=== PATIENT | female | born 1975 | race Asian ===

== ENCOUNTER 2017-05-21 15:54 | Emergency (ER) | payer BC ==
[~2017-05-21] VITALS: Ht 162.6 cm; Wt 51.3 kg
[~2017-05-21 15:54] MED LIST: PRENTAB26 PO
[2017-05-21 15:58] VITALS: TEMP 37.1; Ht 162.6 cm; Wt 51.3 kg
[2017-05-21] MEDS ORDERED: METHYLPREDNISOLONE 125 MG VIAL IV STA (16:19)
[2017-05-21] MEDS ORDERED: LORAZEPAM 2 MG/ML 1 ML VIAL IV STA (16:19)
[2017-05-21] MEDS ORDERED: MoRPHine SULFATE 4 MG/ML 1 ML CARP\\VIAL IV STA (16:19)
[2017-05-21] MEDS ORDERED: TRMO115 PO (16:59)
[2017-05-21 17:02] LABS: BASO % 0.2 %; BASO ABS # 0.02 K/uL (0-0.2); COMPLETE YES; EOS % 2.3 %; HEMATOCRIT 36.8 % (37-47); IG% 0.2 %; LYMPH % 12.2 %; LYMPH ABS # 1.01 K/uL (1.2-3.4); MEAN CELL VOLUME 96.8 fL (80-100); MEAN CORPUSCULAR HEMOGLOBIN 32.6 pg (25-34); MEAN CORPUSCULAR HGB CONC 33.7 g/dl (32-36); MEAN PLATELET VOLUME 9.9 fL (7.4-10.4); MONO % 4.1 %; PLATELET COUNT 211 K/uL (130-400)
[2017-05-21 17:22] LABS: BUN/CREATININE RATIO 18.6 (10-20); C-REACTIVE PROTEIN 1.32 mg/dl (0-0.29); CALCIUM 9.1 mg/dl (8.5-10.1); CREATININE 0.63 mg/dl (0.60-1.20); POTASSIUM 3.3 mmol/L (3.5-5.1)
[2017-05-21] MEDS ORDERED: MoRPHine SULFATE 10 MG/ML CARP/VIAL IV STA (17:26)
[2017-05-21] MEDS ORDERED: MoRPHine SULFATE 2 MG/ML CARP ONE (17:29)
--- NOTE | 2017-05-21 17:42 | DIAGNOSTIC IMAGING REPORT ---
CERVICAL SPINE 5 VIEWS HISTORY: severe neck pain COMPARISON: None. FINDINGS: The cervical spine is visualized from C1 through the superior endplate of T1. There is no fracture. No subluxation. Disc spaces are preserved. Prevertebral soft tissues and the atlantodens interval are intact. Straightening of the cervical spine. IMPRESSION: No fracture or subluxation within the cervical spine. Straightening of the cervical spine which could be due to muscular spasm. Electronically signed by: Shree Nice M.D. 05/21/2017 5:40 PM Dictated Date/Time: 05/21/2017 5:39 PM
--- NOTE | 2017-05-21 17:59 | EMERGENCY ROOM VISIT NOTE ---
ED Visit Note First contact with patient: 16:02 The patient was seen and examined with Fercho Hoffman PA-C. I agree with the history, physical and findings. Please see the note for disposition and details. I did examine the patient on with Fercho. The patient has significant neck discomfort with lateral motion. She did feel somewhat better with a distraction test. Unable to perform a Spurling maneuver as she had too much discomfort with that type of movement. She was neurologically intact in the upper extremities. She did have a slight elevation of her inflammatory markers but denies any recent fevers or infections. Her x-ray imaging was rather unremarkable. Despite the treatment given in the emergency department she was still uncomfortable. I discussed advanced imaging with her as she has this unusual presentation. Fercho was planning to set up an MRI/MRA. The patient declined and wanted to follow-up as an outpatient. Patient's family were aware of the issues by limiting the workup.
[2017-05-21] MEDS ORDERED: HYDR-5688 PO (18:37)
[2017-05-21 18:48] VITALS: BP 102/62; PULSE 62; O2SAT 96
--- NOTE | 2017-05-21 20:09 | EMERGENCY ROOM VISIT NOTE ---
ED Visit Note First contact with patient: 16:02 Chief Complaint: Neck pain. History of Present Illness: Ms. Dukes is a 41-year-old [place] female who ambulates into the ED accompanied by male friend complaining of neck pain. Historically patient denies any previous significant neck injuries or surgeries. She has been feeling well. Patient reports yesterday morning, approximately 32 hours ago, she awoke from sleep and was experiencing neck pain. Her reports she fell asleep nursing their child and appeared an awkward position. She reports at the time she woke up her pain was located over the bilateral trapezius muscles just lateral to the spine. The pain starts at the C6-C7 intervertebral and extends up to her ears. Her pain was initially mild and has gradually increased in intensity. She has not taken any medication for pain. Currently she was pouring that the pain over the left side of the neck is more severe. She describes it as a constant cramping sensation with occasional burning sensation. She rates her discomfort 9/10. Her pain is nonradiating. Her pain worsens with all movement of her cervical spine. She has not identified any alleviating factors related to the pain. She denies fevers, chills, sweats, skin eruptions, skin color changes, headache , dizziness, lightheadedness, visual changes, hearing changes, difficulty speaking, difficulty swallowing, difficulty ambulating/coordinating body movements, upper respiratory tract symptoms, sinus congestion/drainage,, ear drainage, sore throat, voice changes, cough, chest pain, shortness of breath, abdominal pain, nausea, vomiting, upper extremity weakness/numbness/tingling. Review of Systems: As noted above in history of present illness. 8 body systems were reviewed and found to be negative as noted above. Past Medical History: Eczema, heartburn, kidney infection area Current Medications: Multivitamins, triamcinolone acetonide. Allergies to Medications: Patient denies. Social History: Patient is currently employed; she feels safe in her home environment; she denies tobacco use and admits to social alcohol use. Physical Examination: Vital Signs: Date Time Temp Pulse Resp B/P (MAP) Pulse Ox O2 Delivery O2 Flow Rate FiO2 05/21/17 18:48 62 16 102/62 96 05/21/17 17:34 68 16 93/51 96 Room Air 05/21/17 16:48 66 05/21/17 15:58 37.1 72 16 109/70 97 Room Air GENERAL: 41-year-old female in moderate distress due to pain, nontoxic-appearing , afebrile and hemodynamically stable. NEUROLOGICAL: Awake, alert and oriented to person, place and time. Answering questions appropriately and following commands. Normal gait. Good hand eye coordination. No focal motor or sensory deficits. SKIN: Warm, dry and pink. No soft tissue eruptions or trauma noted. HEENT: Atraumatic and normocephalic. No tenderness or erythema over the frontal or maxillary sinuses. External ears are nontender. Auditory canals are pink in pain. Tympanic membrane are not erythematous or edematous. PERRLA. EOMI without nystagmus. Sclera white and conjunctiva pink. No drainage from naris. Airway is patent. Oral cavity moist and pink. Pharynx is nonerythematous or edematous. Speech normal. No lymphadenopathy. Trachea midline. No jugular venous distention. BACK: No tenderness over the bony cervical and thoracic spine. Moderate tenderness over the trapezius muscle bilaterally with prominence on the left. Palpable muscle spasm on the left. Patient had minimal movements in flexion and extension of the neck but no lateral bending or twisting. No CVA tenderness. THORAX: Lungs sounds are clear to auscultation and equal bilaterally with symmetrical chest wall. ABDOMEN: Flat, soft and nontender. Positive bowel sounds in all quadrants. No guarding, rigidity or organomegaly. EXTREMITIES: Moves all extremities well on command and with purpose. All distal neurovascular statuses are intact and equal bilaterally. Upper Extremities: 4/5 muscle strength in all movements of the shoulders, elbows, forearms, wrists and hands. ED Course: Patient is assessed as noted above. Patient's medication list was reviewed. Laboratory Testing: Test 05/21/17 16:49 Range/Units White Blood Count 8.30 4.8-10.8 K/uL Red Blood Count 3.80 4.2-5.4 M/uL Hemoglobin 12.4 12.0-16.0 g/dL Hematocrit 36.8 37-47 % Mean Corpuscular Volume 96.8 80-100 fL Mean Corpuscular Hemoglobin 32.6 25-34 pg Mean Corpuscular Hemoglobin Concent 33.7 32-36 g/dl Platelet Count 211 130-400 K/uL Mean Platelet Volume 9.9 7.4-10.4 fL Neutrophils (%) (Auto) 81.0 % Lymphocytes (%) (Auto) 12.2 % Monocytes (%) (Auto) 4.1 % Eosinophils (%) (Auto) 2.3 % Basophils (%) (Auto) 0.2 % Neutrophils # (Auto) 6.72 1.4-6.5 K/uL Lymphocytes # (Auto) 1.01 1.2-3.4 K/uL Monocytes # (Auto) 0.34 0.11-0.59 K/uL Eosinophils # (Auto) 0.19 0-0.5 K/uL Basophils # (Auto) 0.02 0-0.2 K/uL RDW Standard Deviation 42.7 36.4-46.3 fL RDW Coefficient of Variation 12.2 11.5-14.5 % Immature Granulocyte % (Auto) 0.2 % Immature Granulocyte # (Auto) 0.02 0.00-0.02 K/uL Erythrocyte Sedimentation Rate 26 0-21 mm/hr Sodium Level 136 136-145 mmol/L Potassium Level 3.3 3.5-5.1 mmol/L Chloride Level 104 98-107 mmol/L Carbon Dioxide Level 27 21-32 mmol/L Anion Gap 5.0 3-11 mmol/L Blood Urea Nitrogen 12 7-18 mg/dl Creatinine 0.63 0.60-1.20 mg/dl Est Creatinine Clear Calc Drug Dose 97.1 ml/min Estimated GFR () 131.0 Estimated GFR (Non- 113.0 BUN/Creatinine Ratio 18.6 10-20 Random Glucose 186 70-99 mg/dl Calcium Level 9.1 8.5-10.1 mg/dl C-Reactive Protein 1.32 0-0.29 mg/dl Patient was offered a cervical spine CT and refused. Cervical Spine X-Rays: Were read by myself and the radiologist showing no fractures or subluxations. Straining of the cervical spine was noted. Patient was given 4 mg of morphine IV, 0.5 mg of Ativan IV and 125 mg of Solu- Medrol IV for her initial treatment. Patient was reassessed multiple times during her stay in the emergency department. After patient returned from x-ray she reported increase in pain and she was given 6 mg of morphine IV. Patient's case was reviewed with ; he independently assessed the patient and we agreed on diagnostic approach, treatment, disposition and plan. 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 She also expressed concerns that she has a VALERIA Rodrigues her insurance. Patient was educated about today's findings and instructed on her treatment plan ; she verbalized understanding and agreement with this plan. Clinical Impression: Torticollis. Hyperglycemia. Elevated inflammatory factors. Decision-Making: Initially my differential diagnosis I considered torticollis, meningitis, cervical disc disease, lumbar disc disease and other causes. Patient's blood pressure: Normal to hypotensive. Blood pressure disposition: None required. Disposition: Patient discharged home in stable condition accompanied by her ; prior to departure she was reassessed and subjectively reported she was feeling better and rated her discomfort 4/10. Plan: Comfort measures were discussed with the patient including rest, heat/cold therapies and a sliding pain medication scale of ibuprofen, acetaminophen and [place]. Patient was encouraged to call her PCP in the morning and inform them of today' s ED visit and request follow-up care and treatment for her neck pain but also her hyperglycemia. Patient was encouraged return ED for worsening pain, fevers, upper extremity weakness/numbness/tingling, vomiting or any new/concerning symptoms.
== END 2017-05-21 18:49 | disposition home or self-care (01) ==
LOC: C.EDB 15:56
DX: M43.6 Torticollis (principal); R73.9 Hyperglycemia, unspecified

== ENCOUNTER 2017-05-23 11:13 | Emergency (ER) | payer BC ==
[~2017-05-23] VITALS: Ht 162.6 cm; Wt 51.8 kg
[~2017-05-23 11:13] MED LIST changes: +HYDR-5688 PO; +TRMO115 PO
[2017-05-23 11:22] VITALS: TEMP 37; Ht 162.6 cm; Wt 51.8 kg
[2017-05-23] MEDS ORDERED: KETOROLAC TROMETHAMINE 30 MG/ML VIAL IV STA (12:21)
[2017-05-23] MEDS ORDERED: DIAZEPAM INJ 5 MG/ML 2 ML CARP IV STA (12:21)
[2017-05-23] MEDS ORDERED: ONDANSETRON INJ 2 MG/ML 2 ML VIAL IV STA (12:21)
[2017-05-23] MEDS ORDERED: MoRPHine SULFATE 10 MG/ML CARP/VIAL IV STA (12:21)
[2017-05-23] MEDS ORDERED: HYDR-5688 PO (12:22)
[2017-05-23] MEDS ORDERED: CYCL10TA6 PO (12:54)
[2017-05-23] MEDS ORDERED: OXYC1TAB3 PO (12:54)
--- NOTE | 2017-05-23 12:55 | EMERGENCY ROOM VISIT NOTE ---
ED Visit Note First contact with patient: 11:47 CHIEF COMPLAINT: Left-sided neck pain 3 days HPI: Patient is a [id number] 41-year-old female who returns to the emergency department accompanied by her for ongoing left-sided neck pain. She's had symptoms for about 3 days. The pain was initially in her entire neck, but has localized more to the left hand side. She was seen and evaluated here on the , had unremarkable blood work and a negative x-ray. There was talk of an MRI at that time, but the patient declined. She was discharged home on [place] 5 mg tablets, she reports that she is taking 2 tablets every 6 hours which only takes the edge off of her pain. She reports that she has had a heating pad on "constantly." She states that the pain worsened overnight, she describes it as a sharp, throbbing pain in the left side of her neck that radiates toward the base of her skull and toward the top of her shoulder. At its worst she rated it a 10/10, presently she rates it an 8/10. It is worse with any attempts at movement of her neck, as well as her left shoulder. She denies any symptoms radiating into her mid back. She denies any radicular symptoms radiating down her left arm, no arm numbness or weakness. Her symptoms started about 3 days ago, after she fell asleep awkwardly while breast-feeding her child. She denies any fever or chills. There has been no direct trauma to the back. She denies any nausea or vomiting. REVIEW OF SYSTEMS: Review of systems as per HPI. All other systems reviewed were negative. 10 systems reviewed. PMH: Electronic medical records are reviewed and summarized as above/below. See Problem List. SOCIAL HISTORY: Patient lives at home with her family. PHYSICAL EXAM: Vital Signs: Reviewed Nurse's notes. MENTAL STATUS: Patient is an uncomfortable-appearing 41-year-old female who is awake and alert and sitting semiupright on the gurney in moderate distress due to her headache pain area she has significant discomfort with any movement of her neck, she holds her head flexed, rotated and leaning slightly to the right. HEENT: Normocephalic, atraumatic. Pupils equal, round, reactive to light and accommodation. EOMs intact without nystagmus. Sclera are anicteric. Tympanic membranes intact, with normal landmarks. External canals are clear. Oral and nasopharynx are clear. Mucous membranes are moist. NECK: The patient has visualized spasm in the left trapezius distribution, and is markedly tender in this region. She does not have any pain over the spinous processes of the cervical or upper thoracic spine. There is slight left paraspinous muscle tenderness in the upper cervical region, no pain extending into the rhomboid distribution. Cervical spine range of motion is limited due to her discomfort. HEART: Regular rate and rhythm. LUNGS: Clear to auscultation. NEUROLOGICAL: Alert, oriented, and cooperative. Cranial nerves, sensation and strength grossly intact. Upper extremity DTRs are equal and secondary symmetrical bilaterally. Radial and ulnar pulses are easily palpable. Sensation light touch is intact. Capillary refills less than 2 seconds. EMERGENCY DEPARTMENT COURSE: The patient was seen and examined as above. Her old records were reviewed, specifically her ED visit from just 2 days ago. She had benign radiographs at this time. Patient's pain appears to be muscular/ ligamentous injury to her. She does not have any radicular symptoms, no upper extremity weakness or diminished reflexes. She does not have any physical exam findings to suspect acute cord compression. I do not suspect infectious etiology, hematoma or abscess, CVA/TIA, or dissection. I discussed with them at this juncture that I do not feel that an MRI is indicated and they were in agreement. The patient has not been taking an NSAID. She also is concerned because she was not placed on a muscle relaxer, both of which I agree are reasonable. IV lock was initiated. She was medicated with Toradol 30 mg, morphine 6 mg, Zofran 4 mg and Valium 2.5 mg IV. She was observed in the emergency department and reassessed at which point she appeared much more comfortable. The patient rated her pain a 5/10 at discharge. As she reported little relief with the [place], she will be bumped up to OxyIR. She was encouraged to take an NSAID regularly, and was counseled that she can safely do this with the narcotic. She was also prescribed Flexeril. Heat and gentle stretching/range of motion exercises and massage were also encouraged. She was advised to follow-up with her primary care provider next week for further care and management if symptoms are not improving. The patient was discharged home with her driving in good condition. Medication reconciliation: I attest that I have personally reviewed the patient' s current medication list. Blood pressure screening : Patient was found to have normal blood pressure on screening and does not require follow-up. Problem List Medical Problems: (1) Elderly multigravida, currently in third trimester Status: Resolved (2) Neck pain Status: Resolved (3) Supervision of elderly multigravida in third trimester (>=35 years old at time of delivery) Status: Resolved (4) Vaginal delivery Status: Resolved Current/Historical Medications Scheduled Multivit/Min/Iron/Fol Ac/Pren ( Vitamin), 1 TAB PO DAILY Triamcinolone Acet (Triamcinolone Acetonide), 1 APPLN PO PRN UD Scheduled PRN Cyclobenzaprine Hcl (Flexeril), 10 MG PO TID PRN for Muscle Spasms Hydrocodone/Acetaminophen 5MG/325MG ([place] 5MG/325MG), 2 TABLETS PO Q6 PRN for Pain Oxycodone Immediate Rel Tab (Roxicodone Ir), 1-2 TAB PO Q4H PRN for Severe Pain Allergies Coded Allergies: Shrimp (Verified Allergy, Mild, HIVES, 05/23/17) Vital Signs Date Time Temp Pulse Resp B/P (MAP) Pulse Ox O2 Delivery O2 Flow Rate FiO2 05/23/17 13:38 66 18 101/64 96 05/23/17 13:10 82 18 106/60 98 Room Air 05/23/17 12:49 60 18 111/62 98 Room Air 05/23/17 12:49 Room Air 05/23/17 11:22 37.0 63 16 105/69 98 Room Air Medications Administered Medications (Trade) Dose Ordered Sig/Chinmay Route Start Time Stop Time Status Last Admin Dose Admin Ketorolac Tromethamine (Toradol Inj) 30 mg NOW STAT IV 05/23/17 12:21 05/23/17 12:24 DC 05/23/17 12:44 30 MG Morphine Sulfate (MoRPHine SULFATE INJ) 6 mg NOW STAT IV 05/23/17 12:21 05/23/17 12:24 DC 05/23/17 12:44 6 MG Ondansetron HCl (Zofran Inj) 4 mg NOW STAT IV 05/23/17 12:21 05/23/17 12:24 DC 05/23/17 12:45 4 MG Diazepam (Valium Inj) 2.5 mg NOW STAT IV 05/23/17 12:21 05/23/17 12:24 DC 05/23/17 12:45 2.5 MG Departure Information Impression Primary Impression: Torticollis Prescriptions Oxycodone Immediate Rel Tab (ROXICODONE IR) 5 Mg Tab 1-2 TAB PO Q4H Y for Severe Pain, #30 TAB For Initial Treatment Prov: Malu Scott PA 05/23/17 Cyclobenzaprine Hcl (FLEXERIL) 10 Mg Tab 10 MG PO TID Y for Muscle Spasms, #30 TAB Prov: Malu Scott PA 05/23/17 Referrals No Doctor, Assigned (PCP) Patient Instructions [facility] Additional Instructions DO NOT drive, drink alcohol, operate machinery, or perform dangerous activities today. You were given medications in the ER that can affect your ability to safely function or operate a vehicle. Oxycodone (OxyIR) 5mg: Take 1-2 pills every four hours for breakthrough pain. Avoid alcohol, operating machinery or dangerous equipment, working on ladders or roofs, DRIVING, or situations where being under the influence may be dangerous. It is recommended to use an pcod-cgw-fftenyc stool softener such as Colace, 100mg twice daily while taking this medication to avoid constipation. Cyclobenzaprine (Flexeril) 10 mg: Take 1 pills 3 times daily as needed for muscle spasms.. Avoid alcohol, operating machinery or dangerous equipment, working on ladders or roofs, DRIVING, or situations where being under the influence may be dangerous. Ibuprofen(Motrin, Advil) may be used for fever or pain. Use 600mg every six hours with food. Avoid using more than 2400mg in a 24 hour period. Do not use 2400mg per day for more than three consecutive days without physician direction. Prolonged inappropriate use can lead to stomach upset or ulcers. This medication can be taken if you need to drive, work, or perform activities which may be dangerous when taking narcotic pain medication. (AND/OR) Acetaminophen(Tylenol) may be used for fever or pain. Use 1000mg every six hours as needed. Avoid using more than 3000mg in a 24 hour period. This medication can be taken if you need to drive, work, or perform activities which may be dangerous when taking narcotic pain medication. Rest and avoid heavy lifting until your symptoms resolve and then gradually return to full activity. A good rule of thumb is if it hurts your back to perform a certain activity, then it should be avoided until you are healthy again. A heating pad, warm compresses, or a hot shower may help with tight muscles and can be done several times a day as needed. Gentle stretching exercises/range of motion exercises to help reduce stiffness and spasm. Continue current medications. Return to the ER immediately for any numbness, tingling, severe pain, loss of control of your bowels or bladder, inability to walk, or as needed. Follow up with your primary care physician within 3-5 days for a recheck of your current condition.
[2017-05-23 13:38] VITALS: BP 101/64; PULSE 66; O2SAT 96
== END 2017-05-23 13:39 | disposition home or self-care (01) ==
LOC: C.EDB 11:15 → C.EDD 13:39
DX: M43.6 Torticollis (principal); Z98.890 Other specified postprocedural states

== ENCOUNTER → 2017-09-11 | Outpatient (CLI) | payer OTHER ==
[~2017-09-11] MED LIST changes: +OXYC1TAB3 PO
== END | disposition home or self-care (01) ==
LOC: C.LAB1850 08-20 14:23
PROVIDERS: ATTEND Obstetrics & Gynecology Reproductive Endocrinology
DX: N97.9 Female infertility, unspecified (principal); Z31.41 Encounter for fertility testing; Z11.3 Encounter for screening for infections with a predominantly sexual mode of transmission; Z11.4 Encounter for screening for human immunodeficiency virus [HIV]; Z11.59 Encounter for screening for other viral diseases; Z13.0 Encounter for screening for diseases of the blood and blood-forming organs and certain disorders involving the immune mechanism; Z13.21 Encounter for screening for nutritional disorder

== ENCOUNTER → 2017-09-23 | Outpatient (CLI) | payer OTHER | END | disposition home or self-care (01) | LOC: C.LAB1850 09:33 | PROVIDERS: ATTEND Obstetrics & Gynecology Reproductive Endocrinology | DX: N97.9 Female infertility, unspecified (principal) ==

== ENCOUNTER → 2017-10-12 | Outpatient (CLI) | payer OTHER | END | disposition home or self-care (01) | LOC: C.LAB1850 11:50 | PROVIDERS: ATTEND Obstetrics & Gynecology Reproductive Endocrinology | DX: O09.00 Supervision of pregnancy with history of infertility, unspecified trimester (principal); Z3A.00 Weeks of gestation of pregnancy not specified ==

== ENCOUNTER → 2017-10-28 | Outpatient (CLI) | payer OTHER | END | disposition home or self-care (01) | LOC: C.LABSPEC 17:13 | PROVIDERS: ATTEND Obstetrics & Gynecology | DX: O09.811 Supervision of pregnancy resulting from assisted reproductive technology, first trimester (principal) ==

== ENCOUNTER → 2018-01-05 | Outpatient (CLI) | payer OTHER ==
[~2018-01-05] MED LIST changes: -OXYC1TAB3 PO
== END | disposition home or self-care (01) ==
LOC: C.LAB1850 16:50
PROVIDERS: ATTEND Obstetrics & Gynecology
DX: O09.812 Supervision of pregnancy resulting from assisted reproductive technology, second trimester (principal); Z3A.00 Weeks of gestation of pregnancy not specified

== ENCOUNTER → 2018-01-09 | Outpatient (CLI) | payer OTHER | END | disposition home or self-care (01) | LOC: C.LAB1850 09:18 | PROVIDERS: ATTEND Obstetrics & Gynecology | DX: O28.1 Abnormal biochemical finding on antenatal screening of mother (principal); Z3A.00 Weeks of gestation of pregnancy not specified ==

== ENCOUNTER 2018-06-21 07:59 | Inpatient (IN) ==
[2018-06-21] MEDS ORDERED: OXYTOCIN 30 UNITS/500 ML BAG IV PRN ×2 (08:18→18:01)
[2018-06-21] MEDS ORDERED: LACTATED RINGER'S 1,000 ML IV PRN ×2 (08:18→11:38)
[2018-06-21] MEDS ORDERED: LACTATED RINGER'S 1,000 ML IV SCH (08:30)
[2018-06-21 08:49] LABS: Hematocrit (blood only) 33.7 % (37-47); Hemoglobin 11.5 g/dL (12.0-16.0); Mean Corpuscular Volume 101.8 fL (80-100); Mean Platelet Volume 10.4 fL (7.4-10.4); Platelet Count 240 K/uL (130-400); RDW Coefficient of Variation 12.4 % (11.5-14.5); RDW Standard Deviation 45.8 fL (36.4-46.3); Red Blood Count 3.31 M/uL (4.2-5.4); White Blood Count 5.68 K/uL (4.8-10.8)
[2018-06-21 09:03] LABS: Mean Corpuscular Hgb Conc 34.1 g/dL (32-36)
--- NOTE | 2018-06-21 09:13 | History & Physical Report ---
Date of Service June 21, 2018 Assessment & Plan (1) Normal labor: Will AROM once bloodwork has been done patient would like epidural analgesia when appropriate. anticipate vaginal . Present on Admission?: Yes History of Present Illness Primary Care Provider: NO PCP Patient is a 42 yo female EDC 06/17/18 who presents with regular contractions since 0600 with bloody show. NO SPROM. complicated by AMA & IVF. All testing was normal. GBS negative. Allergies Allergy/AdvReac Type Severity Reaction Status Date / Time shrimp Allergy Mild HIVES Verified 06/21/18 08:42 Home Medications Home Medications Medication Instructions Recorded Confirmed Type PNV cmb#95-ferrous fumarate-FA 1 tab PO DAILY #0 tab 07/12/12 06/21/18 History [] triamcinolone acetonide 1 applic PO PRN UD #0 05/21/17 06/21/18 History Patient History Social History marital status: Current Living Situation: Family Other Information That Helps Us Care for You: No Feels Safe at Home: Yes Safety Concerns: Feels Safe At This Time Smoking Status: Never smoker Do You Dip or Chew Tobacco: No Second Hand Exposure: No Tobacco Cessation Education Requested by Patient: No Hx Alcohol Use: No Hx Substance Use: No Beliefs That Will Affect Care: None Preferred Language: Slovak Ager Operator Required: No Review of Systems All systems reviewed & are unremarkable except as noted in HPI & below Physical Exam 2 Vital Signs (Past 24 Hours): Last Vital Signs Temp 36.9 C 06/21/18 08:13 Pulse 74 06/21/18 08:13 BP 115/56 L 06/21/18 08:13 Constitutional: WD/WN, vitals as above Respiratory: normal respiratory effort, lungs clear to auscultation Cardiovascular: RRR, no murmur, no edema Genitourinary: Manual OB Exam: + cervical dilation 4 cm, + cervical effacement 90% and + station -2 OB Exam Monitor Tracing: + external FHT monitor used, + external uterine monitor used, + category I and + normal FHT variability
[2018-06-21] MEDS ORDERED: fentaNYL citrate 100 MCG/2 ML VIAL ONE (10:31)
[2018-06-21] MEDS ORDERED: BUPIVACAINE 0.25% 30 ML VIAL ONE (10:31)
[2018-06-21] MEDS ORDERED: ePHEDrine sulfate 50 MG/ML AMP ONE (10:31)
[2018-06-21] MEDS ORDERED: fentaNYL 2MCG/ML ROPIV 1.25MG/ML 100 ML BAG EPI ONE (10:32)
--- NOTE | 2018-06-21 11:07 | Anesthesiology Consultation ---
Date of Service June 21, 2018 Assessment & Plan Chart Review Chart Review: Acceptable Risk for Labor Epidural Consults Requested none ASA ASA2 Proposed Anesthesia Anesthesia Type: Labor Epidural Risk / Benefits Reviewed With: PT / POA / Parent / Guardian, Accepts Plan and Informed Consent Obtained NPO Date Last Intake of Fluids: 06/21/18 Time Last Intake of Fluids: 06:00 Date Last Intake of Solids: 06/21/18 Time Last Intake of Solids: 06:00 History Height/Weight Height: 5 ft 4 in Weight: 61.377 kg Allergies Allergy/AdvReac Type Severity Reaction Status Date / Time shrimp Allergy Mild HIVES Verified 06/21/18 08:42 Medications Home Medications Medication Instructions Recorded Confirmed Last Taken PNV cmb#95-ferrous fumarate-FA 1 tab PO DAILY #0 tab 07/12/12 06/21/18 06/20/18 07:00 [] triamcinolone acetonide 1 applic PO PRN UD #0 05/21/17 06/21/18 06/19/18 22:00 Active Medications Generic Name Dose Route Start Last Admin Trade Name Freq PRN Reason Stop Dose Admin Lactated Ringer's 1,000 mls @ 999 mls/hr 06/21/18 08:18 06/21/18 10:25 Lr IV 07/21/18 08:17 999 mls/hr .Q1H1M PRN Administration (Pre-Anesthesia) Beta Tito Beta Tito Taken Within 24 Hours: No Past Medical History Medical History Anxiety no meds History of in vitro fertilization 2012, 2015, 2018 History of kidney infection Painful sexual intercourse Vaginal yeast infection history of vaginal yeast infection Past Anesthesia History No Hx of Anesthesia Complications and No Family Hx of Anesthesia Complications History of PONV No Motion Sickness Screening History of Motion Sickness: No Social History Smoking Status: Never smoker Do You Dip or Chew Tobacco: No Hx Alcohol Use: No Hx Substance Use: No substance use type: does not use Exercise / Class Metabolic Activity II 4-5 Yardwork/Stairs/Walk up hill Physical Exam Vital Signs Last Vital Signs Temp 37.1 C 06/21/18 10:17 Pulse 71 06/21/18 11:01 Resp 18 06/21/18 10:17 BP 115/56 L 06/21/18 08:13 Pulse Ox 99 06/21/18 11:01 ENMT Thyromental Distance: < 3.5 Finger Breadths Mallampati Class: II Neck normal visual inspection and trachea midline; neck extension not limited Respiratory normal respiratory effort Auscultation: lungs clear to auscultation bilaterally Cardiovascular Rate/Rhythm: regular rate and regular rhythm Heart Sounds: no murmur Musculoskeletal Spine: lumbar spine normal to inspection Neurologic moves all extremities Motor/Sensory: no sensory deficit Psychiatric Orientation: alert and oriented x 3 Testing Laboratory Results 06/21/18 08:32
[2018-06-21] MEDS ORDERED: DiphenhydrAMINE HCL 50 MG/ML VIAL IV PRN (11:38)
[2018-06-21] MEDS ORDERED: ONDANSETRON INJ 2 MG/ML 2 ML VIAL IV PRN (11:38)
[2018-06-21] MEDS ORDERED: NALOXONE HCL 0.4 MG/1 ML VIAL/CARP IV PRN (11:38)
[2018-06-21] MEDS ORDERED: ePHEDrine sulfate 50 MG/ML AMP IV PRN (11:38)
[2018-06-21] MEDS ORDERED: NALOXONE HCL 1 MG in SODIUM CHLORIDE 0.9% 1000ML 1,000 ML IV PRN (11:38)
[2018-06-21] MEDS ORDERED: NALBUPHINE HCL INJ 10 MG/ML AMP IV PRN (11:38)
[2018-06-21] MEDS ORDERED: fentaNYL 2MCG/ML ROPIV 1.25MG/ML 100 ML BAG EPI PRN (11:38)
[2018-06-21] MEDS ORDERED: PROMETHAZINE HCL 25 MG in SODIUM CHLORIDE 0.9% 50 ML IV PRN (11:38)
[2018-06-21] MEDS ORDERED: KEFZOL SPECIAL PROCEDURE STOCK 1 GM ADDVIAL IV ONE (17:35)
[2018-06-21] MEDS ORDERED: BENZOCAINE 20% AER SPR 82.5 GM CAN EXT PRN (18:01)
[2018-06-21] MEDS ORDERED: BISACODYL 10 MG SUPP PR PRN (18:01)
[2018-06-21] MEDS ORDERED: ACETAMINOPHEN 325 MG TAB PO PRN (18:01)
[2018-06-21] MEDS ORDERED: HYDROCORTISONE ACETATE 25 MG SUPP PR PRN (18:01)
[2018-06-21] MEDS ORDERED: OXYCODONE/ACETAMINOPHEN 5mg/325mg TAB PO PRN (18:01)
[2018-06-21] MEDS: CEFAZOLIN 2000MG 2,000 MG/15 ML SYR IV SCH (18:06)
[2018-06-21] MEDS ORDERED: DIPHTHERIA/TETANUS/PERTUSSIS 0.5 ML SYR/VIAL IM ONE (18:45)
--- NOTE | 2018-06-21 19:04 | Anesthesia Procedure Note ---
Date of Service June 21, 2018 Anesthesia Post Epidural Note Vital Signs Vital Signs: Temp Pulse Resp BP Pulse Ox 06/21/18 19:01 65 113/68 06/21/18 18:50 68 120/68 06/21/18 18:32 83 139/62 06/21/18 18:16 60 123/64 06/21/18 18:01 63 134/68 06/21/18 17:46 62 123/74 06/21/18 17:31 59 L 111/59 L 06/21/18 17:16 74 126/71 100 06/21/18 17:11 63 99 06/21/18 17:06 58 L 100 06/21/18 17:02 63 112/54 L 06/21/18 17:01 74 99 06/21/18 17:00 65 90 06/21/18 16:56 61 99 06/21/18 16:51 62 100 06/21/18 16:46 59 L 100 06/21/18 16:41 57 L 100 06/21/18 16:36 60 100 06/21/18 16:31 62 99 06/21/18 16:30 20 06/21/18 16:26 63 100 06/21/18 16:21 61 100 06/21/18 16:16 58 L 99 06/21/18 16:11 67 99 06/21/18 16:06 101 H 100 06/21/18 16:02 69 117/56 L 06/21/18 16:01 72 99 06/21/18 16:00 36.9 C 20 06/21/18 15:56 60 99 06/21/18 15:51 66 99 06/21/18 15:47 60 114/58 L 06/21/18 15:46 73 98 06/21/18 15:41 68 99 06/21/18 15:36 59 L 98 06/21/18 15:32 56 L 105/55 L 06/21/18 15:31 56 L 98 06/21/18 15:30 18 06/21/18 15:26 58 L 98 06/21/18 15:21 64 98 06/21/18 15:16 55 L 107/55 L 99 06/21/18 15:11 64 98 06/21/18 15:06 72 99 06/21/18 15:02 64 118/59 L 06/21/18 15:01 70 99 06/21/18 15:00 20 06/21/18 14:56 70 99 06/21/18 14:51 69 98 06/21/18 14:48 59 L 108/56 L 06/21/18 14:46 69 99 06/21/18 14:41 60 98 06/21/18 14:36 60 98 06/21/18 14:31 60 114/59 L 98 06/21/18 14:30 36.9 C 18 06/21/18 14:26 62 98 06/21/18 14:21 60 98 06/21/18 14:17 56 L 115/59 L 06/21/18 14:16 61 99 06/21/18 14:11 62 98 06/21/18 14:06 64 99 06/21/18 14:02 62 114/58 L 06/21/18 14:01 62 99 06/21/18 14:00 20 06/21/18 13:56 63 98 06/21/18 13:51 63 100 06/21/18 13:46 60 110/56 L 99 06/21/18 13:41 63 98 06/21/18 13:36 71 100 06/21/18 13:32 59 L 113/55 L 06/21/18 13:31 61 98 06/21/18 13:30 37.0 C 16 06/21/18 13:26 61 99 06/21/18 13:21 60 99 06/21/18 13:18 58 L 112/57 L 06/21/18 13:16 62 98 06/21/18 13:11 60 99 06/21/18 13:06 59 L 98 06/21/18 13:01 58 L 105/60 98 06/21/18 13:00 20 06/21/18 12:56 61 99 06/21/18 12:52 59 L 103/54 L 06/21/18 12:51 62 100 06/21/18 12:46 61 97 06/21/18 12:43 59 L 101/48 L 06/21/18 12:41 72 99 06/21/18 12:36 62 98 06/21/18 12:31 59 L 97 06/21/18 12:30 18 06/21/18 12:26 59 L 97 06/21/18 12:21 58 L 97 06/21/18 12:16 59 L 99 06/21/18 12:11 67 99 06/21/18 12:07 58 L 103/54 L 06/21/18 12:06 60 98 06/21/18 12:02 59 L 104/58 L 06/21/18 12:01 57 L 98 06/21/18 12:00 20 06/21/18 11:56 57 L 105/55 L 98 06/21/18 11:52 61 108/53 L 06/21/18 11:51 63 97 06/21/18 11:46 67 98 06/21/18 11:45 64 18 108/54 L 06/21/18 11:43 63 110/52 L 06/21/18 11:41 65 110/54 L 98 06/21/18 11:39 63 102/54 L 06/21/18 11:37 65 107/53 L 06/21/18 11:36 70 99 06/21/18 11:35 65 109/57 L 06/21/18 11:33 65 109/57 L 06/21/18 11:31 68 107/55 L 99 06/21/18 11:30 36.6 C 18 06/21/18 11:29 66 112/55 L 06/21/18 11:26 62 113/57 L 99 06/21/18 11:21 64 99 06/21/18 11:16 64 100 06/21/18 11:11 61 100 06/21/18 11:06 60 100 06/21/18 11:01 71 99 06/21/18 10:56 60 98 06/21/18 10:51 56 L 99 06/21/18 10:46 56 L 100 06/21/18 10:17 37.1 C 18 06/21/18 08:13 36.9 C 74 115/56 L Notes Mental Status: alert / awake / arousable Patient Amnestic to Procedure: No Nausea / Vomiting: adequately controlled Pain: adequately controlled Airway Patency, RR, SpO2: stable & adequate BP & HR: stable & adequate Hydration State: stable & adequate Neuraxial Anesthesia: was administered and sensory block is resolving Anesthetic Complications: no major complications apparent and Pt Satisfied with anesthetic care Epidural: Removed without complications and With tip intact
[2018-06-21] MEDS: DOCUSATE SODIUM 100 MG CAP PO SCH (20:45)
[2018-06-22] MEDS: CEFAZOLIN 2000MG 2,000 MG/15 ML SYR IV SCH (01:11)
--- NOTE | 2018-06-22 03:12 | Delivery Summary ---
DATE OF OPERATION: 06/21/2018 The patient is a 42-year-old female G3, P2-0-0-2, EDC of 06/17/2018, who presented with regular contractions. She was 4 cm and 90% effaced on admission. She actually had been scheduled for induction of labor because of IVF and advanced maternal age for this day. Membranes were ruptured. She received effective epidural analgesia. She pushed effectively over intact perineum after reaching full dilation. Mouth and nasopharynx were suctioned on delivery of the vertex. The left hand was also presenting and this was delivered next. The rest of the infant delivered easily and was placed on the mother's abdomen for further attention and drying. There was vigorous crying and the infant was moving all 4 limbs. Cord blood donation was obtained after the cord was clamped and cut. The cord was somewhat short and it was cut prior to 30 seconds of . The placenta partially , but then the retained placental remnant had to be manually removed.. Sharp curettage was then performed to ensure that all placental tissue was removed. A thorough Manual exploration of the uterine cavity found that there was no retained tissue. Uterus was firm and bleeding was minimal. Estimated blood loss was 300 mL. Bleeding was controlled with dilute Pitocin. Mother and were doing well after delivery. I attest to the content of the Intraoperative Record and any orders documented therein. Any exceptions are noted below. DEVOND
[2018-06-22 06:25] LABS: Hemoglobin 11.9 g/dL (12.0-16.0); Mean Platelet Volume 10.1 fL (7.4-10.4); Platelet Count 201 K/uL (130-400); RDW Coefficient of Variation 12.6 % (11.5-14.5); RDW Standard Deviation 46.6 fL (36.4-46.3); Red Blood Count 3.43 M/uL (4.2-5.4); White Blood Count 11.24 K/uL (4.8-10.8)
--- NOTE | 2018-06-22 06:57 | Obstetrical Progress Note ---
Date of Service <Levon Davila MD - Last Filed: 06/22/18 07:01> June 22, 2018 Assessment & Plan <Levon Davila MD - Last Filed: 06/22/18 07:01> (1) Normal labor: A/P day 1 Vital signs reviewed WNL Hemoglobin 11.9 today GBS -, Blood type O+, Rubella Immune Patient doing well clinically Encouraged improved ambulation today and continued efforts with Breast feeding Subjective <Levon Davila MD - Last Filed: 06/22/18 07:01> Ambulation: limited ambulation (Only up and to bathroom so far causes her vaginal pain to walk) Voiding: no voiding problems Passing Gas:: Yes Diet Tolerance:: regular diet Lochia:: Moderate Feeding Type:: breast feeding (No milk yet per patient) Ms Dukes is doing well this morning resting in bed. She reports she has only been up and to the bathrooms so far and has pain in her vaginal area and lower abdomen. She is breast feeding but not producing much milk yet. No other complaints or questions at this time. Constitutional: no fever, no chills, no fatigue and no weakness Respiratory: no cough and no dyspnea Cardiovascular: no chest pain, no dyspnea and no palpitations Gastrointestinal: + abdominal pain (Lower abdominal pain, mild); no nausea and no vomiting Physical Exam <Levon Davila MD - Last Filed: 06/22/18 07:01> Vital Signs (Past 24 Hours) Last Vital Signs Temp 36.8 C 06/22/18 03:20 Pulse 54 L 06/22/18 03:20 Resp 16 06/22/18 03:20 BP 103/59 L 06/22/18 03:20 Pulse Ox 98 06/22/18 03:20 Constitutional well developed, well nourished, comfortable and + lethargic; no acute distress Respiratory normal respiratory effort, lungs clear to auscultation Cardiovascular Rate/Rhythm: regular rate and regular rhythm Heart Sounds: normal S1 and normal S2; no click, no gallop, no murmur and no cardiac rub Extremities: no calf tenderness Gastrointestinal (Abdomen) Inspection/Auscultation: abdomen normal to inspection Percussion/Palpation: abdomen soft; abdomen nontender Genitourinary OB Exam Abdomen: + fundal height Fundus: + firm and + relation to umbilicus (At umbilicus); not tender <Molly Garcia MD, FACOG - Last Filed: 06/22/18 07:59> Co-Signing Physician Notes Resident Physician Supervision Note: I interviewed and examined the patient. Discussed with Dr. Levon Davila and agree with findings and plan as documented in the note. Any exceptions or clarifications are listed here: [None] Documented By: Molly Garcia MD, FACOG
[2018-06-22] MEDS: PRENATAL VITAMIN 1 TAB PO SCH (08:04)
[2018-06-22] MEDS: DOCUSATE SODIUM 100 MG CAP PO SCH ×2 (08:04→20:39)
[2018-06-22] MEDS: IBUPROFEN 600 MG TAB PO PRN (08:04)
[2018-06-22] MEDS: SUPERCREAM 0.870% 15 GM JAR EXT PRN (08:05)
[2018-06-22] MEDS ORDERED: BISACODYL 5 MG TABEC PO SCH (20:00)
[2018-06-23] MEDS: IBUPROFEN 600 MG TAB PO PRN ×3 (00:55→20:58)
--- NOTE | 2018-06-23 06:56 | Obstetrical Progress Note ---
Date of Service <Levon Davila MD - Last Filed: 06/23/18 06:55> June 23, 2018 Assessment & Plan <Levon Davila MD - Last Filed: 06/23/18 06:55> (1) Normal labor: A/P day 2 Vital signs reviewed WNL Hemoglobin 11.9 today GBS -, Blood type O+, Rubella Immune Patient doing well clinically Encouraged improved ambulation today and continued efforts with Breast feeding today Reviewed discharge instructions with patients including follow up appt, return to activity, and when to seek medical care. Subjective <Levon Davila MD - Last Filed: 06/23/18 06:55> Ambulation: ambulating normally Voiding: no voiding problems Passing Gas:: Yes Diet Tolerance:: regular diet Lochia:: Small Feeding Type:: breast feeding Ms Dukes is having some pain in her uterus and vagina. She can feel her stitches pulling when she walks. Breast feeding has been very painful, but she feels like she is making strides with the help of her analytics consultant. Otherwise she is doing well and feels she is ready to go home. Constitutional: no fever, no chills, no sweats, no fatigue and no weakness Respiratory: no cough and no dyspnea Cardiovascular: no chest pain, no dyspnea, no palpitations, no lightheadedness and no calf pain Gastrointestinal: + abdominal pain (Lower abdominal pain, mild); no nausea and no vomiting Physical Exam <Levon Davila MD - Last Filed: 06/23/18 06:55> Vital Signs (Past 24 Hours) Last Vital Signs Temp 36.5 C 06/23/18 00:50 Pulse 58 L 06/23/18 00:50 Resp 20 06/23/18 00:50 BP 123/70 06/23/18 00:50 Pulse Ox 97 06/23/18 00:50 Constitutional well developed, well nourished, comfortable and + lethargic; no acute distress Respiratory normal respiratory effort, lungs clear to auscultation Cardiovascular Rate/Rhythm: regular rate and regular rhythm Heart Sounds: normal S1 and normal S2; no click, no gallop, no murmur and no cardiac rub Extremities: no calf tenderness Gastrointestinal (Abdomen) Inspection/Auscultation: abdomen normal to inspection Percussion/Palpation: abdomen soft; abdomen nontender Genitourinary OB Exam Abdomen: + fundal height Fundus: + firm and + relation to umbilicus (At umbilicus); not tender <Neeta Martinez, - Last Filed: 06/23/18 07:36> Co-Signing Physician Notes I have seen/examined patient. I have read above note performed by resident and I agree with above. Any changes/additions are as follows: PPD#2 doing well, no concerns. RTO 6w PP. Neeta Martinez DO [facility] [place] [facility]
[2018-06-23 07:00] LABS: Hematocrit (blood only) 34.8 % (37-47); Hemoglobin 11.9 g/dL (12.0-16.0)
[2018-06-23] MEDS: PRENATAL VITAMIN 1 TAB PO SCH (08:45)
[2018-06-23] MEDS: DOCUSATE SODIUM 100 MG CAP PO SCH ×2 (08:45→20:58)
[2018-06-23] MEDS: SUPERCREAM 0.870% 15 GM JAR EXT PRN (11:19)
== END 2018-06-23 22:50 | disposition home or self-care (01) | DRG 807 ==
LOC: 4S1 07:59 → 4S2 21:00
DX: Z3A.40 40 weeks gestation of pregnancy; O09.523 Supervision of elderly multigravida, third trimester; O26.893 Other specified pregnancy related conditions, third trimester; Z37.0 Single live birth; O09.813 Supervision of pregnancy resulting from assisted reproductive technology, third trimester